=== PATIENT | female | born 1975 | race African-American/Black ===

== ENCOUNTER 2018-08-07 18:33 | Observation (INO) ==
[2018-08-07 19:27] LABS: Basophils % 0.2 %; Eosinophils # 0.1 K/mcL (0.0-0.6); Eosinophils % 0.6 %; Hematocrit 36.6 % (35.3-44.9); Hemoglobin 12.6 g/dL (11.5-15.4); Immature Granulocytes % 0.2 % (0-4); Lymphocytes # 1.5 K/mcL (0.6-4.6); Lymphocytes % 11.9 %; Mean Corpuscular HGB Conc 34.4 g/dL (31.6-35.5); Mean Corpuscular Hemoglobin 28.4 pg (28.0-33.3); Mean Corpuscular Volume 82.6 fL (83.0-100.0); Mean Platelet Volume 10.4 fL (9.4-12.4); Monocytes # 0.6 K/mcL (0.0-1.3); Monocytes % 4.6 %; Neutrophils # 10.2 K/mcL (1.6-8.9); Platelet Count 325 K/mcL (140-400); Red Blood Count 4.43 M/mcL (3.82-4.97); Red Cell Distribution Width 14.8 % (11.5-14.5); Segmented Neutrophils % 82.5 %
[2018-08-07 19:46] LABS: Alanine Aminotransferase 27 Units/L (7-52); Aspartate Amino Transferase 36 Units/L (13-39); BUN/Creatinine Ratio 15 (6-26); Blood Urea Nitrogen 8 mg/dL (6-20); Lactate Dehydrogenase 164 Units/L (140-271); Uric Acid 5.8 mg/dL (2.3-7.6); eGFR For Non-African Americans > 60 (> 60)
[2018-08-07 20:04] LABS: Bilirubin,Urine Small (Negative); Blood,Urine Negative (Negative); Clarity,Urine Cloudy (Clear); Color,Urine Dark Yellow (Yellow); Glucose,Urine (UA) Normal (Normal); Ketones,Urine 40 mg/dL (Negative); Leukocyte Esterase,Urine Large (Negative); Nitrite,Urine Negative (Negative); Protein,Urine Trace mg/dL (Neg-Trace); Specific Gravity,Urine 1.014 (1.010-1.025); Urobilinogen,Urine Normal (Normal)
[2018-08-07 20:06] LABS: Bacteria,Urine Moderate per hpf (None-Few); RBC,Urine 0-3 per hpf (0-3); Squamous Epithelial Cell,Urine Many per lpf (None-Few); WBC,Urine TNTC per hpf (0-3)
[2018-08-07 20:21] LABS: Hyaline Casts,Urine Few per lpf (None-Few)
[2018-08-07 20:24] LABS: Amphetamine Screen,Urine Negative ng/mL (Cutoff=1000); Barbiturate Screen,Urine Negative ng/mL (Cutoff=200); Benzodiazepines Screen,Urine Negative ng/mL (Cutoff=200); Cannabinoid Screen,Urine Negative ng/mL (Cutoff = 50); Cocaine Screen,Urine Negative ng/mL (Cutoff= 300); Creatinine,Urine 202 mg/dL; Opiate Screen,Urine Negative ng/mL (Cutoff=300); Phencyclidine Screen,Urine Negative ng/mL (Cutoff=25); Protein/Creatinine Ratio,Urine 0.15 mg/mg (0.00-0.20)
--- NOTE | 2018-08-07 21:12 | Discharge Summary ---
Date of Encounter: 08/07/18 Time of Encounter: 21:10 - Discharge Diagnosis (1) 38 weeks gestation of Priority: Primary Status: Acute Comments: Admitted to observation for PIH evaluation due to proteinuria in the office today. (2) NST (non-stress test) reactive Priority: Secondary Status: Acute Comments: FHR 130 bpm, moderate variability, +15x15 accels, no decels. (3) Proteinuria affecting in third trimester Priority: Secondary Status: Acute Comments: Patient was sent for PIH evaluation from the office due to proteinuria. Patient reports she had sex earlier in the day. Denies GRAY, visual disturbance, epigastric pain. Reflexes 1+ bilaterally. (4) Gestational diabetes mellitus (GDM) treated with oral hypoglycemic therapy Priority: Secondary Status: Acute Comments: Continue metformin as previously prescribed and continue monitoring blood sugars as previously ordered. - Discharge Medications Home Medications: Unisom 05/01/18 [History] Ferrous Sulfate 324 mg PO DAILY 08/07/18 [History] Vitamin Tablet 08/07/18 [History] Vitamin B-6 1 tab PO DAILY 08/07/18 [History] metFORMIN 500 mg PO DAILY 08/07/18 [History] Allergies/Adverse Reactions: Allergy/AdvReac Type Severity Reaction Status Date / Time No Known Allergies Allergy Verified 05/01/18 18:49 Data Procedures and tests throughout hospitalization: Laboratory Tests 08/07/18 08/07/18 08/07/18 18:56 18:56 18:56 WBC 12.4 H RBC 4.43 Hgb 12.6 Hct 36.6 MCV 82.6 L MCH 28.4 MCHC 34.4 RDW 14.8 H Plt Count 325 MPV 10.4 Immature Gran % 0.2 Seg Neutrophils % 82.5 Lymphocytes % 11.9 Monocytes % 4.6 Eosinophils % 0.6 Basophils % 0.2 Neutrophils # 10.2 H Lymphocytes # 1.5 Monocytes # 0.6 Eosinophils # 0.1 Basophils # 0.0 BUN Creatinine Est GFR ( Amer) Est GFR (Non-Af Amer) BUN/Creatinine Ratio Uric Acid AST ALT Lactate Dehydrogenase Urine Color Dark Yellow Urine Clarity Cloudy A Urine pH 6.0 Ur Specific [place] 1.014 Urine Protein Trace Urine Glucose (UA) Normal Urine Ketones 40 H Urine Blood Negative Urine Nitrite Negative Urine Bilirubin Small H Urine Urobilinogen Normal Ur Leukocyte Esterase Large H Urine Microscopic RBC 0-3 Urine Microscopic WBC TNTC H Ur Squamous Epith Cells Many H Urine Bacteria Moderate H Hyaline Casts Few Urine Creatinine 202 Protein/Creatinin Ratio 0.15 Urine Total Protein 31 H Urine Opiates Screen Negative Ur Barbiturates Screen Negative Ur Phencyclidine Scrn Negative Ur Amphetamines Screen Negative U Benzodiazepines Scrn Negative Urine Cocaine Screen Negative U Marijuana (THC) Screen Negative Ur Drug Screen Interp See Below 08/07/18 18:56 WBC RBC Hgb Hct MCV MCH MCHC RDW Plt Count MPV Immature Gran % Seg Neutrophils % Lymphocytes % Monocytes % Eosinophils % Basophils % Neutrophils # Lymphocytes # Monocytes # Eosinophils # Basophils # BUN 8 Creatinine 0.54 L Est GFR ( Amer) > 60 Est GFR (Non-Af Amer) > 60 BUN/Creatinine Ratio 15 Uric Acid 5.8 AST 36 ALT 27 Lactate Dehydrogenase 164 Urine Color Urine Clarity Urine pH Ur Specific [place] Urine Protein Urine Glucose (UA) Urine Ketones Urine Blood Urine Nitrite Urine Bilirubin Urine Urobilinogen Ur Leukocyte Esterase Urine Microscopic RBC Urine Microscopic WBC Ur Squamous Epith Cells Urine Bacteria Hyaline Casts Urine Creatinine Protein/Creatinin Ratio Urine Total Protein Urine Opiates Screen Ur Barbiturates Screen Ur Phencyclidine Scrn Ur Amphetamines Screen U Benzodiazepines Scrn Urine Cocaine Screen U Marijuana (THC) Screen Ur Drug Screen Interp Labs on day of discharge: Labs from last 24 hours 08/07/18 08/07/18 08/07/18 18:56 18:56 18:56 WBC RBC Hgb Hct MCV MCH MCHC RDW Plt Count MPV Immature Gran % Seg Neutrophils % Lymphocytes % Monocytes % Eosinophils % Basophils % Neutrophils # Lymphocytes # Monocytes # Eosinophils # Basophils # BUN 8 Creatinine 0.54 L Est GFR ( Amer) > 60 Est GFR (Non-Af Amer) > 60 BUN/Creatinine Ratio 15 Uric Acid 5.8 AST 36 ALT 27 Lactate Dehydrogenase 164 Urine Color Dark Yellow Urine Clarity Cloudy A Urine pH 6.0 Ur Specific [place] 1.014 Urine Protein Trace Urine Glucose (UA) Normal Urine Ketones 40 H Urine Blood Negative Urine Nitrite Negative Urine Bilirubin Small H Urine Urobilinogen Normal Ur Leukocyte Esterase Large H Urine Microscopic RBC 0-3 Urine Microscopic WBC TNTC H Ur Squamous Epith Cells Many H Urine Bacteria Moderate H Hyaline Casts Few Urine Creatinine 202 Protein/Creatinin Ratio 0.15 Urine Total Protein 31 H Urine Opiates Screen Negative Ur Barbiturates Screen Negative Ur Phencyclidine Scrn Negative Ur Amphetamines Screen Negative U Benzodiazepines Scrn Negative Urine Cocaine Screen Negative U Marijuana (THC) Screen Negative Ur Drug Screen Interp See Below 08/07/18 18:56 WBC 12.4 H RBC 4.43 Hgb 12.6 Hct 36.6 MCV 82.6 L MCH 28.4 MCHC 34.4 RDW 14.8 H Plt Count 325 MPV 10.4 Immature Gran % 0.2 Seg Neutrophils % 82.5 Lymphocytes % 11.9 Monocytes % 4.6 Eosinophils % 0.6 Basophils % 0.2 Neutrophils # 10.2 H Lymphocytes # 1.5 Monocytes # 0.6 Eosinophils # 0.1 Basophils # 0.0 BUN Creatinine Est GFR ( Amer) Est GFR (Non-Af Amer) BUN/Creatinine Ratio Uric Acid AST ALT Lactate Dehydrogenase Urine Color Urine Clarity Urine pH Ur Specific [place] Urine Protein Urine Glucose (UA) Urine Ketones Urine Blood Urine Nitrite Urine Bilirubin Urine Urobilinogen Ur Leukocyte Esterase Urine Microscopic RBC Urine Microscopic WBC Ur Squamous Epith Cells Urine Bacteria Hyaline Casts Urine Creatinine Protein/Creatinin Ratio Urine Total Protein Urine Opiates Screen Ur Barbiturates Screen Ur Phencyclidine Scrn Ur Amphetamines Screen U Benzodiazepines Scrn Urine Cocaine Screen U Marijuana (THC) Screen Ur Drug Screen Interp Date of admission: 08/07/18 18:33 Discharging clinician: America Rojas Anticipated date of discharge: 08/07/18 - Patient Status Disposition: Home, Self-Care Condition: Good Functional capacity at discharge: independent ambulation Overall status at discharge: patient is progressing back to baseline - Discharge Instructions Additional Instructions: LABOR AND DELIVERY DISCHARGE INSTRUCTIONS Signs and Symptoms to be Reported to your Doctor Immediately: * Sudden gush, continuous or intermittent lead of fluid from vagina (note the time of gush and color of fluid) * Onset of bright red vaginal bleeding with or without pain (if you had a vaginal exam during this visit you may notice some dark red spotting. This is normal.) * Contractions that are 5 minutes apart (from the beginning of one contraction to the beginning of the next) and last 45-60 seonds; contractions that you can no longer walk, talk or laugh through. * A change in the baby's activity. This could be an increase or decrease in activity. * Severe headache which does not go away with tylenol. * Sudden swelling in the face, hands, arms and/or legs. * Upper abdominal pain - sometimes associated with heartburn or nausea and is not relieved by Maalox, Mylanta or Tums. * Kick Counts __ One hour after a meal, lay down on one side in a quiet place. Count the number of time the baby moves during an hour. If less than 6 movements, notify your physician Diet: *Force fluids, 8 to 10 tall glasses of fluid per day - may include popsicles and jello *Limit caffeine - this includes chocolate, coffee, tea, any soft drink containing such as all adeola, Thom Yellow and Mountain Dew - Diet and Activity Activity: resume usual activities as tolerated Diet: regular diet Hospital Course DIETETIC TECH Hospital course: Jacy was sent from the office today for PIH evaluation due to proteinuria on urine dip. Patient denies signs and symptoms of high blood pressure such as headache visual disturbance and epigastric pain. She reports positive movement, denies vaginal bleeding and fluid leakage. She has a reactive NST with irregular contractions noted. Patient does not complain of any contraction pain at this time. All PIH labs returned within normal limits with a protein creatinine ratio 0.15. She is to follow-up with Dr. Haynes as previously scheduled on Saturday for her routine visit Time Attestation: Total time spent providing and/or coordinating discharge services: Time Spent: Less than 30 minutes Exam - Constitutional General appearance IM: A&O X 3, pleasant, no acute distress, answers questions appropriately - Respiratory Respiratory exam: Present: CTAB - Cardiovascular Cardiovascular exam IM: Present: RRR, +S1, +S2 - GI/Abdominal GI/Abdominal exam IM: normal bowel sounds, soft - Rectal Rectal exam: deferred - Extremities Exam Extremities exam IM: Present: full ROM, normal capillary refill, normal inspection, pedal edema - Neurological Exam Neurological exam: alert, normal gait, oriented X3 - VTE Reasons for not Prescribing Prophylaxis: Treatment not Indicated - Low risk for VTE
== END 2018-08-07 20:45 | disposition home or self-care (01) ==
LOC: 1NENULAB
PROVIDERS: ADMIT Registered Nurse; ATTEND Registered Nurse

== ENCOUNTER 2018-08-13 08:00 | Inpatient (IN) ==
[2018-08-13] MEDS ORDERED: Famotidine 20 MG/2 ML VIAL IVP PRN (08:23)
[2018-08-13] MEDS ORDERED: Ondansetron 4 MG/2 ML VIAL IVP PRN (08:23)
[2018-08-13] MEDS ORDERED: Naloxone 0.4 MG/ML INJ IVP PRN (08:23)
[2018-08-13] MEDS ORDERED: *HR* Nalbuphine 10 MG/ML AMPUL IVP PRN (08:23)
[2018-08-13] MEDS ORDERED: Oxytocin 20 units/ LR 1000 mL 20 UNIT/1,000 ML BAG IVC SCH (08:30)
[2018-08-13] MEDS ORDERED: Ringers Solution, Lactated 1,000 ML IVC SCH (08:30)
[2018-08-13 09:04] LABS: Basophils % 0.2 %; Eosinophils # 0.1 K/mcL (0.0-0.6); Eosinophils % 0.6 %; Hematocrit 37.6 % (35.3-44.9); Hemoglobin 12.9 g/dL (11.5-15.4); Immature Granulocytes % 0.4 % (0-4); Lymphocytes # 1.6 K/mcL (0.6-4.6); Lymphocytes % 14.8 %; Mean Corpuscular HGB Conc 34.3 g/dL (31.6-35.5); Mean Corpuscular Hemoglobin 28.2 pg (28.0-33.3); Mean Corpuscular Volume 82.3 fL (83.0-100.0); Mean Platelet Volume 10.3 fL (9.4-12.4); Monocytes # 0.6 K/mcL (0.0-1.3); Monocytes % 5.3 %; Neutrophils # 8.7 K/mcL (1.6-8.9); Platelet Count 327 K/mcL (140-400); Red Blood Count 4.57 M/mcL (3.82-4.97); Red Cell Distribution Width 14.5 % (11.5-14.5); Segmented Neutrophils % 78.7 %
--- NOTE | 2018-08-13 09:12 | OB/GYN History & Physical ---
Addendum entered and electronically signed by Sweta Haynes DO 08/13/18 13:07: The history, physical exam, and medical decision making was performed by the mn dical student either while I was physically present and actively involved or I personally re-performed the exam and medical decision making. I have verified the accuracy of the medical student's documentation with regards to the history, physical exam findings, and medical decision making. Sweta Haynes DO Original Note: Date of Encounter: 08/13/18 Time of Encounter: 09:35 Assessment and Plan (1) Gestational diabetes mellitus (GDM) treated with oral hypoglycemic therapy Current visit: Yes Status: Acute Patient has been well controlled with once daily Metformin Recommend 2 hour GTT (2) 39 weeks gestation of Current visit: Yes Status: Acute Induction of labor due to medical complications of listed below. Pitocin induction. AROM once in active labor. Epidural if desires. (3) Large for gestational age fetus Current visit: Yes Status: Acute EFW 4308 gm on 08/07/18. Patient has delivered a 10 lb baby previously without difficulty or dystocia. (4) Hx of macrosomia in in prior , currently Current visit: Yes Status: Acute (5) Maternal obesity affecting , antepartum Current visit: Yes Status: Acute (6) Advanced maternal age (AMA), 40 years or greater Current visit: Yes Status: Acute (7) Proteinuria affecting in third trimester Current visit: Yes Status: Acute Continue to monitor for symptoms of pre-eclampsia throughout labor and early post- period. Currently with normal blood pressures and reflexes and asymptomatic. Will continue to monitor and induce. History of Present Illness Chief complaint: induction of labor HPI: Ms. Byrnes is a 42 year old female, , who presents today for induction of labor. She has gestational diabetes. She denies vaginal bleeding, abdominal pain, change in vision, headache, edema, or breast issues. Reports cont ractions, could not tell how often but said they were spread apart quite a bit. She reports some mucus-like vaginal discharge this morning. Past Med Surg Social Fam HX - Past Medical History Source: patient, old records reviewed Medical history: non-contributory, other Additional medical history: alopecia areata Psychiatric history: no psych history - Past Surgical History Surgical History: no surgical history - Social History Smoking Status: Never smoker Smokeless Tobacco Status: No Alcohol use: none Drug use: none Occupational status: employed - Family History Father Living Status: Still Living Hx Family Cardiac Disorders: Yes Mother Living Status: Hx Family Cardiac Disorders: No Hx Family Respiratory Disorders: No Hx Family Cancer: Yes (breast) Hx Family GI Disorders: No Hx Family Genitourinary Disorders: No Hx Family Endocrine Disorder: No Hx Family Musculoskeletal Disorders: No Hx Family Neuromuscular Disorders: No Hx Family Neurologic Disorders: No Hx Family HEENT Disorders: No Hx Family Autoimmune Disorders: No Hx Family Reproductive Disorders: No Hx Family Psychosocial Disorders: No Hx Family Medical Disorders: No Obstetrical History - Pregnancies : 4 Para: 3 Term: 3 Livin - History/Complications History/Complications: Largest baby 10 lbs and no shoulder dystocia Medications and Allergies Unisom 1 mg PO DAILY 05/01/18 [History] Ferrous Sulfate 324 mg PO DAILY 08/07/18 [History] Vitamin Tablet 1 mg PO DAILY 08/07/18 [History] Vitamin B-6 1 tab PO DAILY 08/07/18 [History] metFORMIN 500 mg PO DAILY 08/07/18 [History] Allergy/AdvReac Type Severity Reaction Status Date / Time No Known Allergies Allergy Verified 05/01/18 18:49 Review of System OB All systems PM: reviewed and no additional remarkable complaints except as stated - Constitutional Constitutional ROS IM: no chills, no fever(s) - Nose, mouth, and throat Nose, mouth and throat: nasal congestion (has a cold), no headache(s) - Breasts Breasts: no pain, no nipple discharge - Cardiovascular Cardiovascular: no chest pain, no edema, no palpitations, no rapid heart rate - Respiratory Respiratory: no cough, no dyspnea, no wheezing - Gastrointestinal Gastrointestinal: constipation, heartburn, nausea, no abdominal pain, no vomiting - Genitourinary Genitourinary: urinary urgency, no breast pain, no difficulty urinating, no dysuria, no hematuria, no urinary incontinence - Muscloskeletal Musculoskeletal: no joint swelling, no muscle cramps, no muscle weakness, no numbness - Integumentary Integumentary: no pruritus, no rash, no sores - Neurological Nerological: no headache(s), no loss of vision, no tingling - Psychiatric Psychiatric: no anxiety, no depression - Endocrine Endocrine: no cold intolerance, no heat intolerance, no polydipsia, no polyuria - Hematologic/Lymphatic Hematologic/Lymphatic: no easy bleeding, no easy bruising - Allergic/Immunologic Allergic/Immunologic: other (no allergies) Exam - Vital Signs Vital signs: Initial Vital Signs Temp Pulse Resp BP 98.3 F 125 16 122/67 08/13/18 08:36 08/13/18 08:36 08/13/18 08:36 08/13/18 08:36 - Constitutional Constitutional: well developed, well nourished, no acute distress, morbidly obese - HEENT HEENT: PERRL, Normocephaly, Mucus Membranes Moist - Neck Neck exam: normal inspection - Lungs Respiratory exam: CTAB - Cardiovascular Cardiovascular exam: +S1, +S2, tachycardia - Abdomen Abdomen: Present: gravid, bowel sounds hypoactive - Extremities Deep Tendon Reflex Grade: 2+ Normal - Vulva Vulva: bilateral: normal - Vagina Vagina: Present: normal moisture - Cervix Dilation: 3 Effacement: 50 Station: -3 - Anus/Rectum Anus/Rectum: Present: normal perianal skin Results Result Diagrams: 08/13/18 08:36 Abnormal lab results MCV 82.3 fL (83.0-100.0) L 08/13/18 08:36 All other labs normal. - VTE Reasons for not Prescribing Prophylaxis: Treatment not Indicated - Low risk for VTE
--- NOTE | 2018-08-13 09:36 | Anesthesia Evaluation PreOp ---
Date of Encounter: 08/13/18 Time of Encounter: 09:35 - Past History Planned Operation: gely Cardiac History: Denies any Significant Hx Pulmonary History: Denies Any Significant HX JOCKEY AGENT History: Denies Any Significant HX Other Medical History: Diabetes Type II (gestational), Other (Morbid Obesity) Anesthesia History: No Prior Anesthetic Complications, Past Anesthesia (no prior anesthetics) : Yes (39 weeks, ) Alcohol Use: none Drug use: none Medications and Allergies Unisom 1 mg PO DAILY 05/01/18 [History] Ferrous Sulfate 324 mg PO DAILY 08/07/18 [History] Vitamin Tablet 1 mg PO DAILY 08/07/18 [History] Vitamin B-6 1 tab PO DAILY 08/07/18 [History] metFORMIN 500 mg PO DAILY 08/07/18 [History] Allergy/AdvReac Type Severity Reaction Status Date / Time No Known Allergies Allergy Verified 05/01/18 18:49 - Meds/Allergy Pre-op Review Medications Reviewed: Yes Allergies Reviewed: Yes Beta Blockers on Current Med List: No Anesthesia Results - Labs 08/13/18 08:36 Anesthesia Exam O2 Sat Height 1.68 m Weight 124.6 kg Weight 124.6 kg Vital Signs Temp Pulse Resp BP 98.3 F 125 16 122/67 08/13/18 08:36 08/13/18 08:36 08/13/18 08:36 08/13/18 08:36 Height: 66 Weight: 274 - HEENT Pupil (Motor): Pupils equal Mallampati: II Teeth: Normal Oral Opening: Greater than 3 - JOCKEY AGENT LOC: Oriented JOCKEY AGENT Motor: Normal RUE, Normal LUE, Normal RLE, Normal LLE, Normal Face JOCKEY AGENT Sensory: Normal: RUE, LUE, RLE, LLE, Face - Cardiac Rhythm: Regular Murmur: None JVD: No Carotid Bruit: No - Pulmonary Breath Sounds: bilateral Clear Respiratory Effort: Symmetrical Anesthesia Assess/Plan ASA Score: 3 (morbid obesity, GDM) Level of consciousness: Cooperative Anesthetic Plan: Epidural Monitoring Plan: Standard Monitors
[2018-08-13 09:53] LABS: Protein/Creatinine Ratio,Urine 0.4 mg/mg (0.00-0.20)
[2018-08-13 10:31] LABS: Amphetamine Screen,Urine Negative ng/mL (Cutoff=1000); Barbiturate Screen,Urine Negative ng/mL (Cutoff=200); Benzodiazepines Screen,Urine Negative ng/mL (Cutoff=200); Cannabinoid Screen,Urine Negative ng/mL (Cutoff = 50); Cocaine Screen,Urine Negative ng/mL (Cutoff= 300); Opiate Screen,Urine Negative ng/mL (Cutoff=300); Phencyclidine Screen,Urine Negative ng/mL (Cutoff=25)
[2018-08-13] MEDS ORDERED: *HR* Ropivacaine/PF 0.2% 20 ML VIAL ONE ×2 (12:07→13:46)
[2018-08-13] MEDS ORDERED: *HR* FentaNYL (PF) 100 MCG/2 ML VIAL ONE ×2 (12:07→17:33)
[2018-08-13] MEDS ORDERED: Lidocaine -MPF 1% 5 ML AMPUL ONE ×2 (12:07→18:17)
[2018-08-13] MEDS ORDERED: Epidural Premix (fent/bupiv) 110 ML EP ONE (12:34)
[2018-08-13] MEDS ORDERED: EPHEDrine 50 MG/ML VIAL ONE (12:34)
[2018-08-13] MEDS ORDERED: Epidural Premix (fent/bupiv) 110 ML EP SCH (12:45)
--- NOTE | 2018-08-13 12:49 | Anesthesia Procedures ---
Addendum entered and electronically signed by Jaskaran Waggoner CRNA 08/14/18 06:46: Infant Delivery Date: 08/14/18 Delivery Time: 01:28 Original Note: Date of Encounter: 08/13/18 Time of Encounter: 12:15 Procedures: Anesthesia - Epidural/Spinal Patient ID/Chart reviewed: Yes Patient examined: Yes OB Eval: Gestational age: 39 OB Eval: : 4 OB Eval: Hx Para: 3 OB Eval: Dilated at (cm): 4 OB Eval: Contractions: Non-stressed pattern Consent Obtained: Yes Supplemental Oxygen: None/Room Air Site Prep: Aseptic Technique Patient position: upright Local Anesthetic: Lidocaine 1% Amount of Local Anesthetic used: 3 Touhy Needle Gauge: 18 Touhy Needle Depth (cm): 8 Catheter Depth at Skin (cm): 13 Test Dose (1.5% Lido + Epi): Volume given (mls): 3 Test Dose Result: Negative Loading Dose: Fentanyl (mcg): 100 Loading Dose: Other: 5ml 0.2% ropivicaine Loading Dose Administered: Thru Touhy Needle Infusion Med: 0.125% Bupivacaine w/ 2 mcg/ml Fentanyl Infusion Rate (mls/hr): [address]: Tegaderm Interspace Used: L3-L4 Loss of Resistance (ANDIE): Yes Blood: No CSF: No Paresthesia: No
--- NOTE | 2018-08-13 13:04 | OB Labor Progress Note ---
Date of Encounter: 08/13/18 Time of Encounter: 13:02 Labor Progress Note - Subjective Subjective: Patient comfortable after epidural - Cervix Cervix: 4/50/-3 cephalic - Heart Tones Heart Tones: baseline 140, occasional variable with contraction due to recent AROM and epidural with hypotension - [place]: q 2-3 minutes - Interventions Interventions: AROM with clear fluid, large amount. IUPC and FSE placed without difficulty
--- NOTE | 2018-08-13 16:30 | OB Labor Progress Note ---
Date of Encounter: 08/13/18 Time of Encounter: 16:00 Labor Progress Note - Subjective Subjective: Patient comfortable. Epidural in place. - Cervix Cervix: 5/80/-1 per RN - Heart Tones Heart Tones: baseline 135, category 1 - Yale Yale: q 2-3 minutes contractions with IUPC in place and adequate Throckmorton units
[2018-08-13] MEDS ORDERED: Lidocaine -MPF 2% 5 ML VIAL ONE ×2 (17:33→18:36)
--- NOTE | 2018-08-13 18:08 | OB Labor Progress Note ---
Date of Encounter: 08/13/18 Time of Encounter: 18:30 Labor Progress Note - Subjective Subjective: Patient was experiencing a significant amount of pain prior to second epidural being placed. - Cervix Cervix: 5/90/-1 per RN, ~17:30 - Heart Tones Heart Tones: Baseline FHR 125. Some variable decelerations. - Buell Buell: q 2-3 minutes - Interventions Interventions: At approx. 18:00, anesthesia found epidural to have been displaced. Within the hour, she opted to have another one placed, and it was placed at roughly 18:30.
--- NOTE | 2018-08-13 18:10 | Anesthesia Progress Note ---
Date of Encounter: 08/13/18 Time of Encounter: 18:07 Anesthesia Note - Note Note: 08/13/18 18:07 Called to bedside for pain 10/10 with contractions. Bolus given 100mcg fentanyl and 6ml of 2% lidocaine via epidural. While administering bolus patient reported ringing in ears. Bolus immediately stopped and blood aspirated in epidural catheter. Catheter removed and explanation given to patient. Ringing stopped within 60 seconds. Patient does not want to redo the epidural at this time.
--- NOTE | 2018-08-13 18:44 | Anesthesia Procedures ---
Date of Encounter: 08/13/18 Time of Encounter: 18:15 (procedure ended at 1840) Procedures: Anesthesia - Epidural/Spinal Patient ID/Chart reviewed: Yes Patient examined: Yes OB Eval: Contractions: Non-stressed pattern Consent Obtained: Yes Supplemental Oxygen: None/Room Air Site Prep: Aseptic Technique Patient position: upright Local Anesthetic: Lidocaine 1% Amount of Local Anesthetic used: 3 Touhy Needle Gauge: 18 Touhy Needle Depth (cm): 7 Catheter Depth at Skin (cm): 14 Test Dose (1.5% Lido + Epi): Volume given (mls): 5 Test Dose Result: Negative Infusion Med: 0.125% Bupivacaine w/ 2 mcg/ml Fentanyl Infusion Rate (mls/hr): [address]: Tegaderm Interspace Used: L3-L4 Loss of Resistance (ANDIE): Yes Blood: No CSF: No Paresthesia: No Procedure: Called to bedside for patient request to redo epidural. Aseptically x 1 attempt at same interspace as previous epidural. No heme, transient right sided parasthesia when threading catheter. Immediately resolved. Gtt to 16ml/hr
--- NOTE | 2018-08-13 20:09 | OB Labor Progress Note ---
Date of Encounter: 08/13/18 Time of Encounter: 20:05 Labor Progress Note - Subjective Subjective: Patient states that she is no longer in pain s/p second epidural placement. - Cervix Cervix: 6-7/90/-1 per RN 20:00 - Heart Tones Heart Tones: FHR baseline 130, no decelerations currently - [place]: q 2-3.5 minutes - Interventions Interventions: Continue pain management via epidural.
--- NOTE | 2018-08-13 22:07 | OB Labor Progress Note ---
Date of Encounter: 08/13/18 Time of Encounter: 22:00 Labor Progress Note - Subjective Subjective: Patient is experiencing little pain and states that she is going to try to get some sleep. - Cervix Cervix: 7-8 cm/100/-1 - Heart Tones Heart Tones: FHR baseline 140 - [place]: q 2.5-3 minutes - Interventions Interventions: Continue epidural for pain management as needed.
--- NOTE | 2018-08-14 00:21 | OB Labor Progress Note ---
Date of Encounter: 08/14/18 Time of Encounter: 00:05 Labor Progress Note - Subjective Subjective: Patient states that she is experiencing some pain now and occasionally feels the urge to push. She became nauseous soon after I entered the room and vomited shortly thereafter. - Cervix Cervix: 9.5/100/0 per RN - Heart Tones Heart Tones: FHR baseline 145 - [place] Collins: q 2.5-3 minutes - Interventions Interventions: Continue epidural as desired for pain control
--- NOTE | 2018-08-14 00:22 | OB Labor Progress Note ---
Date of Encounter: 08/13/18
--- NOTE | 2018-08-14 01:30 | OB/GYN Procedure Note ---
Delivery - Delivery Date: 08/14/18 Provider: Sweta Haynes Intrapartum events: none Delivery induction: AROM, oxytocin Delivery monitor: external FHT, external uterine, internal FHT, internal uterine Anesthesia: epidural Quantitated Blood Loss: 100 - (s) Infant A Delivery Date: 08/14/18 Delivery Time: 01:28 Presentation: vertex Position: ASHLEIGH Route of delivery: Gender: Male Viability: Viable Pounds: 9 Ounces: 10 Weight Gram: 4.38 kg at 1 minute: 8 at 5 mins: 9 Shoulder Dystocia: not encountered Specimens collected: cord blood Placenta: spontaneous Cord: 3 umbilical vessels - Repair Episiotomy: none Laceration Description: Perineal - 1st Degree, Labial (superficial without repair) - Complications Delivery complications: none Delivery comments: Called to room with patient complete and +2 station. Under maternal effort she delivered a viable male weighing 9 lbs. 10 oz. and Apgars 8 and 9 at one and 5 minutes respectively over a first-degree perineal laceration. Following the delivery of the head there was no nuchal cord cord or shoulder dystocia encountered. Infant delivered with maternal effort. was placed on mom's abdomen. Cord was allowed to cease pulsations and was clamped and cut with assistance from the following the baby. Placenta delivered spontaneously, complete, and intact with a three-vessel cord. A first-degree perineal l aceration was repaired using 3-0 Vicryl in standard fashion. Anterior labial laceration noted that was hemostatic without repair. There were no vaginal or cervical lacerations. Mother and recovering in the LDR in stable condition. - Disposition Mom disposition: stable in LDR disposition: stable in LDR
[2018-08-14] MEDS ORDERED: Acetaminophen 325 MG TABLET PO PRN (01:44)
[2018-08-14] MEDS ORDERED: Oxytocin 20 units/ LR 1000 mL 20 UNIT/1,000 ML BAG IVC SCH (01:44)
[2018-08-14] MEDS ORDERED: Oxytocin 20 units/ LR 1000 mL 20 UNIT/1,000 ML BAG IVC ONE (01:44)
[2018-08-14] MEDS: Ibuprofen 600 MG TABLET PO PRN ×2 (07:43→20:44)
[2018-08-14] MEDS: Prenatal Vit/FA 1 EACH TABLET PO SCH (07:43)
[2018-08-14 09:36] LABS: Hematocrit 32.7 % (35.3-44.9); Mean Corpuscular HGB Conc 33.9 g/dL (31.6-35.5); Mean Corpuscular Hemoglobin 28.1 pg (28.0-33.3); Mean Corpuscular Volume 82.8 fL (83.0-100.0); Mean Platelet Volume 10.7 fL (9.4-12.4); Platelet Count 280 K/mcL (140-400); Red Blood Count 3.95 M/mcL (3.82-4.97); Red Cell Distribution Width 14.6 % (11.5-14.5)
[2018-08-14 09:38] LABS: Alanine Aminotransferase 23 Units/L (7-52); Aspartate Amino Transferase 24 Units/L (13-39); BUN/Creatinine Ratio 17 (6-26); Blood Urea Nitrogen 10 mg/dL (6-20); Uric Acid 7.4 mg/dL (2.3-7.6); eGFR For Non-African Americans > 60 (> 60)
[2018-08-14 09:41] LABS: Lactate Dehydrogenase 112 Units/L (140-271)
[2018-08-14 09:48] LABS: Hemoglobin 11.1 g/dL (11.5-15.4)
[2018-08-14 10:41] LABS: Neutrophils # 22.5 K/mcL (1.6-8.9); Platelet Estimate Normal (Normal)
[2018-08-15] MEDS: Ibuprofen 600 MG TABLET PO PRN (09:31)
[2018-08-15] MEDS: Prenatal Vit/FA 1 EACH TABLET PO SCH (09:32)
[2018-08-15 11:10] VITALS: BP 121/79
--- NOTE | 2018-08-15 12:22 | Discharge Summary ---
Date of Encounter: 08/15/18 Time of Encounter: 12:19 - Discharge Diagnosis (1) Vaginal delivery Priority: Primary Status: Acute Comments: Stable in PP , meeting all PP milestones, pain well managed, tolerates diet, breast and bottle feeding, desires discharge. - Discharge Medications Prescriptions: Ibuprofen [Motrin] 600 mg PO Q6HR PRN #60 tablet PRN Reason: Cramping Breast Pump [BREAST PUMP] 1 each .ROUTE AD #1 each Docusate [Colace] 100 mg PO BID #20 capsule Home Medications: Vitamin Tablet 1 mg PO DAILY 08/07/18 [History] Breast Pump [BREAST PUMP] 1 each .ROUTE AD #1 each 08/14/18 [Rx] Acetaminophen [Tylenol] 650 mg PO Q6HR PRN tablet 08/15/18 [Rx] Docusate [Colace] 100 mg PO BID #20 capsule 08/15/18 [Rx] Ibuprofen [Motrin] 600 mg PO Q6HR PRN #60 tablet 08/15/18 [Rx] Allergies/Adverse Reactions: Allergy/AdvReac Type Severity Reaction Status Date / Time No Known Allergies Allergy Verified 05/01/18 18:49 Data Procedures and tests throughout hospitalization: Laboratory Tests 08/13/18 08/13/18 08/13/18 08:36 08:36 08:36 WBC 11.1 RBC 4.57 Hgb 12.9 Hct 37.6 MCV 82.3 L MCH 28.2 MCHC 34.3 RDW 14.5 Plt Count 327 MPV 10.3 Immature Gran % 0.4 Seg Neutrophils % 78.7 Lymphocytes % 14.8 Monocytes % 5.3 Eosinophils % 0.6 Basophils % 0.2 Neutrophils # 8.7 Lymphocytes # 1.6 Monocytes # 0.6 Eosinophils # 0.1 Basophils # 0.0 Platelet Estimate BUN Creatinine Est GFR ( Amer) Est GFR (Non-Af Amer) BUN/Creatinine Ratio POC Glucose Uric Acid AST ALT Lactate Dehydrogenase Urine Creatinine Protein/Creatinin Ratio Urine Total Protein Urine Opiates Screen Negative Ur Barbiturates Screen Negative Ur Phencyclidine Scrn Negative Ur Amphetamines Screen Negative U Benzodiazepines Scrn Negative Urine Cocaine Screen Negative U Marijuana (THC) Screen Negative Ur Drug Screen Interp See Below Hep Bs Antigen Nonreactive 08/13/18 08/13/18 08/14/18 08:40 08:40 08:44 WBC 24.5 H D RBC 3.95 Hgb 11.1 L D Hct 32.7 L MCV 82.8 L MCH 28.1 MCHC 33.9 RDW 14.6 H Plt Count 280 MPV 10.7 Immature Gran % Seg Neutrophils % 92.0 Lymphocytes % 4.0 Monocytes % 4.0 Eosinophils % Basophils % Neutrophils # 22.5 H Lymphocytes # 1.0 Monocytes # 1.0 Eosinophils # Basophils # Platelet Estimate Normal BUN 10 Creatinine 0.58 L Est GFR ( Amer) > 60 Est GFR (Non-Af Amer) > 60 BUN/Creatinine Ratio 17 POC Glucose Uric Acid 7.4 AST 24 ALT 23 Lactate Dehydrogenase 112 L Urine Creatinine 215 Protein/Creatinin Ratio 0.40 H Urine Total Protein 85 H Urine Opiates Screen Ur Barbiturates Screen Ur Phencyclidine Scrn Ur Amphetamines Screen U Benzodiazepines Scrn Urine Cocaine Screen U Marijuana (THC) Screen Ur Drug Screen Interp Hep Bs Antigen 08/14/18 22:24 WBC RBC Hgb Hct MCV MCH MCHC RDW Plt Count MPV Immature Gran % Seg Neutrophils % Lymphocytes % Monocytes % Eosinophils % Basophils % Neutrophils # Lymphocytes # Monocytes # Eosinophils # Basophils # Platelet Estimate BUN Creatinine Est GFR ( Amer) Est GFR (Non-Af Amer) BUN/Creatinine Ratio POC Glucose 89 Uric Acid AST ALT Lactate Dehydrogenase Urine Creatinine Protein/Creatinin Ratio Urine Total Protein Urine Opiates Screen Ur Barbiturates Screen Ur Phencyclidine Scrn Ur Amphetamines Screen U Benzodiazepines Scrn Urine Cocaine Screen U Marijuana (THC) Screen Ur Drug Screen Interp Hep Bs Antigen Labs on day of discharge: Labs from last 24 hours 08/14/18 22:24 POC Glucose 89 Date of admission: 08/13/18 08:07 Primary care physician: PCP NONE Consults: 08/14/18 01:44 Consult to [facility] [CONS] Routine Comment: Vaginal delivery, consult needed Discharging clinician: Sania Pineda Anticipated date of discharge: 08/15/18 - Patient Status Disposition: Home, Self-Care Condition: Good Functional capacity at discharge: independent ambulation Overall status at discharge: patient is progressing back to baseline - Discharge Instructions Follow Up With: NONE,PCP [Primary Care Provider] - Sweta Haynes, DO [Partnered Physician] - - Diet and Activity Activity: resume usual activities as tolerated Diet: regular diet Hospital Course Reason for admission: IUP at term Delivery: Episiotomy: none Laceration: 1st degree Other procedures: none complications: none Discharge diagnosis: IUP at term delivered [place] baby: male Hospital course: Delivery - Delivery Date: 08/14/18 Provider: Sweta Haynes Intrapartum events: none Delivery induction: AROM, oxytocin Delivery monitor: external FHT, external uterine, internal FHT, internal uterine Anesthesia: epidural Quantitated Blood Loss: 100 - (s) A Delivery Date: 08/14/18 Delivery Time: :28 Presentation: vertex Position: ASHLEIGH Route of delivery: Gender: Male Viability: Viable Pounds: 9 Ounces: 10 Weight Gram: 4.38 kg at 1 minute: 8 at 5 mins: 9 Shoulder Dystocia: not encountered Specimens collected: cord blood Placenta: spontaneous Cord: 3 umbilical vessels - Repair Episiotomy: none Laceration Description: Perineal - 1st Degree, Labial (superficial without repair) - Complications Delivery complications: none Delivery comments: Called to room with patient complete and +2 station. Under maternal effort she delivered a viable male weighing 9 lbs. 10 oz. and Apgars 8 and 9 at one and 5 minutes respectively over a first-degree perineal laceration. Following the delivery of the head there was no nuchal cord cord or shoulder dystocia encountered. Infant delivered with maternal effort. Infant was placed on mom's abdomen. Cord was allowed to cease pulsations and was clamped and cut with assistance from the following the baby. Placenta delivered spontaneously, complete, and intact with a three-vessel cord. A first-degree perineal laceration was repaired using 3-0 Vicryl in standard fashion. Anterior labial laceration noted that was hemostatic without repair. There were no vaginal or cervical lacerations. Mother and infant recovering in the LDR in stable condition. - Disposition Mom disposition: stable in PP and appropriate for discharge Time Attestation: Total time spent providing and/or coordinating discharge services: Time Spent: Less than 30 minutes Exam - Constitutional Vitals: Temp Pulse Resp BP Pulse Ox 98.4 F 84 12 121/79 97 08/15/18 11:09 08/15/18 11:09 08/15/18 11:09 08/15/18 11:08/15/18 11:09 General appearance IM: A&O X 3 - Respiratory Respiratory exam: Present: CTAB - Cardiovascular Cardiovascular exam IM: Present: RRR - GI/Abdominal GI/Abdominal exam IM: soft - Uterine Tone: Firm Uterus Position: 1 Finger Above Umbilicus - Extremities Exam Extremities exam IM: Present: normal capillary refill, normal inspection - Neurological Exam Neurological exam: normal gait, oriented X3 - Psychiatric Additional comments: reports good mood
== END 2018-08-15 14:37 | disposition home or self-care (01) | DRG 560 ==
LOC: 1NENULAB 08:07 → 1NENUOBS 08-14 04:12
PROVIDERS: ADMIT Obstetrics & Gynecology; ATTEND Obstetrics & Gynecology